=== PATIENT | female | born 1945 | race Caucasian/White ===

== ENCOUNTER 2020-04-18 10:08 | Outpatient (CLI) | payer MEDICARE, SELFPAY ==
[2020-04-21 07:42] LABS: Patient Race White; SARS-CoV-2 RNA Undetected (Undetected); SARS-CoV-2 Specimen Source Nasopharynx
== END 2020-04-18 10:28 ==
PROVIDERS: Visit Provider Internal Medicine
DX: Z11.59 Encounter for screening for other viral diseases (principal)
CPT/HCPCS: U0003

== ENCOUNTER 2020-12-08 04:43 | Outpatient (CLI) | payer MEDICARE, SELFPAY ==
[2020-12-08 09:53] LABS: Vitamin D 25 Total 98.9 ng/mL (30-100)
[2020-12-08 09:54] LABS: COMMENT (LAB VIEW ONLY) 172.74 mg/dL; Microalb ug/mg Crea 4.9 ug/mg Cr
[2020-12-08 09:58] LABS: Anion Gap 10.5 mmol/L (3-11); BUN 23 mg/dL (7-18); CO2 24.5 mmol/L (21.0-32.0); CREATININE 1.2 mg/dL (0.55-1.02); Calcium 9.6 mg/dL (8.5-10.1); Calculated LDL 89 mg/dL (<100); Chloride 109 mmol/L (98-107); Cholesterol 157 mg/dL (<200); Estimated GFR 43.68 (mL/min/1.73m2); Glucose 133 mg/dL (74-106); HDL Cholesterol 37 mg/dL (40-60); Potassium 4.3 mmol/L (3.5-5.1); Sodium 144 mmol/L (136-145); TSH 1.47 uIU/mL (0.36-3.74); Triglyceride 156 mg/dL (<150); Vitamin B12 455 pg/mL (193-986)
== END 2020-12-08 04:44 | disposition home or self-care (01) ==
LOC: LBO 04:43
PROVIDERS: PCP Internal Medicine; Visit Provider Internal Medicine
DX: I10 Essential (primary) hypertension (principal); E78.00 Pure hypercholesterolemia, unspecified; E55.9 Vitamin D deficiency, unspecified; D51.9 Vitamin B12 deficiency anemia, unspecified; E11.9 Type 2 diabetes mellitus without complications; F41.9 Anxiety disorder, unspecified; F32.9 Major depressive disorder, single episode, unspecified
CPT/HCPCS: 36415; 80048; 80061; 82306; 82043; 82570; 82607; 84443

== ENCOUNTER 2021-05-25 11:30 | Outpatient (CLI) | payer MEDICARE, SELFPAY ==
--- NOTE | 2021-05-25 10:45 | DI.RAD_ITS ---
Exam(s) XR KNEE RT 3V AP,LAT,GINA EXAM: XR KNEE RT 3V AP,LAT,GINA CLINICAL HISTORY: right knee pain. TECHNIQUE: 2D digital imaging was performed. COMPARISON: No exams were available for comparison FINDINGS: BONES: No acute fracture is present. No bony destructive lesion is seen. Sclerotic lesion distal femo ral metaphysis, likely enchondroma. Enthesophyte tibial tubercle. JOINTS: Moderate narrowing medial femoral tibial joint space. Mild periarticular spurring medial fem oral tibial joint and patellofemoral joint.. No joint effusion is seen. SOFT TISSUE: Arterial calcifications. IMPRESSION: Moderate degenerative changes of the medial femoral tibial joint. DATA REPOSITORY: RADIATION DOSE DELIVERED:
== END 2021-05-25 11:31 | disposition home or self-care (01) ==
LOC: DIORS 11:30
PROVIDERS: PCP Internal Medicine; Referring Provider Internal Medicine; Visit Provider Student in an Organized Health Care Education/Training Program
DX: M17.11 Unilateral primary osteoarthritis, right knee; D16.21 Benign neoplasm of long bones of right lower limb; E11.22 Type 2 diabetes mellitus with diabetic chronic kidney disease; N18.9 Chronic kidney disease, unspecified; M25.561 Pain in right knee
CPT/HCPCS: 73562; 99203

== ENCOUNTER 2021-11-23 03:59 | Outpatient (CLI) | payer MEDICARE, SELFPAY ==
[2021-11-23 10:07] LABS: Anion Gap 10.4 mmol/L (3-11); BUN 30 mg/dL (7-18); CO2 24.6 mmol/L (21.0-32.0); CREATININE 1.2 mg/dL (0.55-1.02); Calcium 9.7 mg/dL (8.5-10.1); Chloride 106 mmol/L (98-107); Estimated GFR 43.56 (mL/min/1.73m2); Glucose 139 mg/dL (74-106); Potassium 4.3 mmol/L (3.5-5.1); Sodium 141 mmol/L (136-145)
[2021-11-23 17:00] LABS: COMMENT (LAB VIEW ONLY) 136.93 mg/dL; Microalb ug/mg Crea 7.6 ug/mg Cr
[2021-11-23 17:25] LABS: Calculated LDL 90 mg/dL (<100); Cholesterol 154 mg/dL (<200); HDL Cholesterol 41 mg/dL (40-60); Triglyceride 116 mg/dL (<150)
== END 2021-11-23 04:00 | disposition home or self-care (01) ==
LOC: LBO 03:59
PROVIDERS: Absent Provider Internal Medicine; PCP Internal Medicine; Referring Provider Internal Medicine; Visit Provider Internal Medicine
DX: I10 Essential (primary) hypertension (principal); E11.9 Type 2 diabetes mellitus without complications; E78.00 Pure hypercholesterolemia, unspecified
CPT/HCPCS: 36415; 80048; 80061; 82043; 82570

== ENCOUNTER 2021-12-21 08:14 | Emergency (ER) | payer MEDICARE, SELFPAY ==
[2021-12-21 08:20] VITALS: BP 152/58; PULSE 71; RESP 14; TEMP 36.6; O2SAT 100
[2021-12-21] MEDS: Lidocaine/Prilocaine Cream 5 GM TUBE (09:02)
--- NOTE | 2021-12-21 09:57 | ED.GENADUL_ITS ---
Discharge Plan Disposition Patient Disposition: HOME Condition: Stable Discharge Details Clinical Impression: Scalp mass Primary Care Provider: Cristy Morales ED Provider: Tutu Franco Home Meds and New Rx's Prescriptions: No Action hydrochlorothiazide 12.5 mg tablet 12.5 mg PO QAM PRN (Reason: LE edema) Qty: 30 0RF Rx Instructions: take as needed for swelling in legs zeaxanthin and Lutien PO DAILY diclofenac sodium [Voltaren Arthritis Pain] 1 % gel 2 g topical QID PRN Rx Instructions: apply to single elbow, wrist or hand; for hand includes palm/fingers/back of hand ascorbate calcium (vitamin C) 500 mg tablet 500 mg PO DAILY aspirin [Enteric Coated Aspirin] 81 mg tablet,delayed release (DR/EC) 81 mg PO DAILY cholecalciferol (vitamin D3) [Vitamin D3] 25 mcg (1,000 unit) capsule 25 mcg PO DAILY biotin 5,000 mcg tablet, sublingual 5,000 mcg sublingual DAILY calcium carbonate-vitamin D3 [Caltrate with Vitamin D3] 600 mg(1,500mg) -800 unit tablet 1 tab PO DAILY amlodipine 10 mg tablet 10 mg PO DAILY Qty: 90 3RF benazepril 10 mg tablet 10 mg PO DAILY Qty: 90 3RF duloxetine 60 mg capsule,delayed release(DR/EC) 60 mg PO DAILY Qty: 90 3RF fenofibrate 160 mg tablet 160 mg PO DAILY Qty: 90 3RF rosuvastatin 5 mg tablet 5 mg PO DAILY Qty: 90 3RF metformin 500 mg tablet 500 mg PO BID Qty: 180 0RF Discharge Instructions Additional Instructions: Please continue to keep the area clean and dry. Return to the emergency department for any new or significant worsening of symptoms. At this time we have placed a referral in for you to see general surgery for further evaluation of the hematoma or mass that you have on your scalp. Referrals: [facility] [Provider Group] - 1 week Medical Decision Making Patient presenting to the emergency department for evaluation of hematoma or mass on her scalp. She states that this is been going on for greater than 5 weeks and occurred after she had a minor head injury where she hit her head on her sink. Patient denies any neurological symptoms, loss of consciousness, neck pain, headaches or other symptoms. Physical exam shows a 1.8 cm circular mass that is soft with slight fluctuant nature. No surrounding signs of cellulitis or infection noted remainder of exam is unremarkable. Discussed with patient risk versus benefit of needle drainage which she was agreeable to. Emla cream was placed over the area and allowed to set for greater than 20 minutes and 18- gauge needle was inserted into most soft/fluctuant area. Was unable to drain any fluid but bleeding was noted postprocedure. Bacitracin was placed on the area after attempt at needle drainage. Given that this is been going on and not improving with inability to drain suspected hematoma I do feel that patient would benefit from a surgical consult for at minimum removal of the mass but also consideration of additional pathology given its atypical presentation for a hematoma. Patient encouraged to keep the area clean and dry pending follow-up. After discussion of diagnosis and plan of care patient has no further needs, questions, or concerns and states clear understanding to return to the emergency department for any worsening symptoms. This documentation was generated using [employer] dictation system, please disregard any oddities of phrase or misspellings. HPI General Mode of arrival: ambulatory . Date/Time Provider Initiated Documentation: 12/21/21 08:50 . Limitations to Documentation: no limitations . Information obtained by: patient, RN notes reviewed and old records reviewed . History of Present Illness 76 year old F presents to the emergency department with the chief complaint of scalp lump, Quality is described as other (denies pain), Patient started experiencing this week(s) (5+) and it has been constant. No relieving factors improve symptom(s), No exacerbating factors reported . Patient notes no other symptoms.. Patient did receive the following treatments prior to arrival, other (Neosporin, Vaseline, and which spencer) Related Data Home Medications Medication Instructions Recorded Confirmed ascorbate calcium (vitamin C) 500 500 mg PO DAILY 08/12/20 11/17/21 mg tablet aspirin 81 mg tablet,delayed 81 mg PO DAILY 08/12/20 11/17/21 release (Enteric Coated Aspirin) biotin 5,000 mcg sublingual tablet 5,000 mcg sublingual DAILY 08/12/20 11/17/21 calcium carbonate 600 mg-vitamin 1 tab PO DAILY 08/12/20 11/17/21 D3 20 mcg (800 unit) tablet (Caltrate with Vitamin D3) cholecalciferol (vitamin D3) 25 25 mcg PO DAILY 08/12/20 11/17/21 mcg (1,000 unit) capsule (Vitamin D3) amlodipine 10 mg tablet 10 mg PO DAILY #90 tabs 02/12/21 11/17/21 benazepril 10 mg tablet 10 mg PO DAILY #90 tabs 02/12/21 11/17/21 duloxetine 60 mg capsule,delayed 60 mg PO DAILY #90 caps 02/12/21 11/17/21 release fenofibrate 160 mg tablet 160 mg PO DAILY #90 tabs 02/12/21 11/17/21 rosuvastatin 5 mg tablet 5 mg PO DAILY #90 tabs 02/12/21 11/17/21 hydrochlorothiazide 12.5 mg tablet 12.5 mg PO QAM PRN LE edema #30 04/15/21 11/17/21 tabs metformin 500 mg tablet 500 mg PO BID #180 tabs 10/13/21 11/17/21 diclofenac sodium 1 % topical gel 2 g topical QID PRN 11/17/21 11/17/21 (Voltaren Arthritis Pain) zeaxanthin and Lutien PO DAILY 11/17/21 11/17/21 Previous Rx's Medication Instructions Recorded amlodipine 10 mg tablet 10 mg PO DAILY #90 tabs 02/12/21 benazepril 10 mg tablet 10 mg PO DAILY #90 tabs 02/12/21 duloxetine 60 mg capsule,delayed 60 mg PO DAILY #90 caps 02/12/21 release fenofibrate 160 mg tablet 160 mg PO DAILY #90 tabs 02/12/21 rosuvastatin 5 mg tablet 5 mg PO DAILY #90 tabs 02/12/21 hydrochlorothiazide 12.5 mg tablet 12.5 mg PO QAM PRN LE edema #30 04/15/21 tabs metformin 500 mg tablet 500 mg PO BID #180 tabs 10/13/21 Allergies Allergy/AdvReac Type Severity Reaction Status Date / Time No Known Allergies Allergy Verified 12/21/21 08:25 General Stated Complaint: HeadInjury CATRACHITO: 5 Review of Systems Narrative: 6 systems reviewed and unremarkable except what is marked below. 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) Actinic keratosis (Acute) Sensorineural hearing loss of both ears (Acute) 04/03/21 LRHENT note: abnormal auditory perception Depression (Chronic) Anxiety (Chronic) Type 2 diabetes mellitus without complications (Chronic) Hypertension (Chronic) Hypercholesterolemia (Chronic) Chronic kidney disease (CKD) stage G3a/A1, moderately decreased glomerular filtration rate (GFR) between 45-59 mL/min/1.73 square meter and albuminuria creatinine ratio less than 30 mg/g (Chronic) B12 deficiency anemia (Chronic) Vitamin D deficiency (Chronic) Mitral valve regurgitation (Chronic) Medical History Cataracts, bilateral (~2019) 2019 Social History Smoking/Tobacco Use Status: Former Tobacco Use tobacco type: cigarettes Quit Date: 07/04/99 Tobacco: How many years used: 26 Smoking risk assessment performed?: Yes Alcohol Intake: current Alcohol Intake frequency: holidays/special occasions only Drug use: Never Substance use type: does not use Details: no IV drug use Adopted: No Caregiver/Support person: No Foster care: No Household members: none Housing: apartment Number of Children: 1 Communication Needs: Hard of Hearing Do you need help understanding health information?: Rarely current occupation: Retired Sexually active: No Do you think of yourself as: straight/heterosexual Current gender identity: female What is your relationship status?: Panel score (0-1 are the most socially isolated patients): 0 What type of physical activity do you participate in: none Seatbelt use: always Drive intox or ride w/intox armored car guard and driver: No Water heater temp set <120 deg: Yes Working smoke detector in home: Yes Fire extinguisher in home: Yes Carbon monox detector in home: Yes Do you feel safe at home: Yes Do you feel safe in your relationship?: Yes Victim of physical abuse: No Victim of emotional abuse: No Exam Const General: cooperative, no acute distress and not ill appearing Orientation: alert, awake and oriented x3 [facility] Head: no Baxter's sign, no contusions, no lacerations, no palpable skull fracture, scalp lesion left parietal other 1.8 in, no scalp tenderness, no temporal artery tenderness and No periorbital ecchymosis Ears: hearing grossly normal bilaterally and external ears normal General nose exam: external nose normal Face and sinus: normal facial exam Neck Neck: normal visual inspection, full ROM and no lymphadenopathy Resp Effort & Inspection: normal respiratory effort, able to speak in complete sentences and no respiratory distress Auscultation: clear to auscultation bilaterally Cardio Rate: regular rate Rhythm: regular rhythm Heart Sounds: S1 normal and S2 normal Neuro General: patient alert, patient awake, patient oriented x3, moves all extremities and no focal motor deficits Sensory Exam: no sensory deficits noted Course Vital Signs Vital signs: Vital Signs Temperature 36.6 C 12/21/21 08:20 Pulse 71 12/21/21 08:20 Respiratory Rate 14 12/21/21 08:20 Blood Pressure 152/58 H 12/21/21 08:20 Pulse Oximetry 100 12/21/21 08:20 Temperature 36.6 C 12/21/21 08:20 Temperature Source Tympanic 12/21/21 08:20 Pulse 71 12/21/21 08:20 Respiratory Rate 14 12/21/21 08:20 Respiratory Effort Non-Labored 12/21/21 08:30 Respiratory Depth Normal 12/21/21 08:30 Respiratory Pattern Normal 12/21/21 08:30 Blood Pressure 152/58 H 12/21/21 08:20 Blood Pressure Position Sitting 12/21/21 08:20 Pulse Oximetry 100 12/21/21 08:20 Oxygen Delivery Method Room Air 12/21/21 08:20 Oxygen Flow Rate 0 12/21/21 08:20 Pain Level 0 12/21/21 08:20
--- NOTE | 2021-12-21 10:29 | NUR.NOTE ---
Nursing Note: Referral faxed to [facility] Surgery for scalp mass in 1 week.
--- NOTE | 2021-12-23 14:15 | NUR.NOTE ---
Nursing Note: Patient called asking for Destiny. There is not Destiny in the ED, but she did state that she has been in contact with [facility] Surgery, they still have to review her records and then will call her back.
== END 2021-12-21 10:10 | disposition home or self-care (01) ==
PROVIDERS: Emergency Provider Nurse Practitioner Family; PCP Internal Medicine
DX: R22.0 Localized swelling, mass and lump, head (principal)
CPT/HCPCS: 99283

== ENCOUNTER → 2021-12-31 09:21 | Outpatient (BNVA) | payer MEDICARE, SELFPAY | PROVIDERS: PCP Internal Medicine; Referring Provider Internal Medicine; Visit Provider Surgery | DX: C49.0 Malignant neoplasm of connective and soft tissue of head, face and neck | CPT/HCPCS: 11104; 99203; 99214 ==

== ENCOUNTER 2021-12-31 10:09 | Outpatient (REF) | payer MEDICARE, SELFPAY ==
--- NOTE | 2021-12-31 10:24 | SKI_PTH ---
PATIENT: Nel Obrien I LOC: [facility] U#:[id number] AGE/SX: 76/F ROOM: RE12/31/[address]: Jaclyn Brown MD : [id number] BED: DIS: 12/31/2021 SPEC #: [id number] RECD: 12/31/21 12:46 STATUS: NOLAN REQ #: [id number] CRISTIN: 12/31/21 10:[address]: Jaclyn Brown DEPT: Surgical Specimen RECD BY: Estefania Woodson ENTERED: 12/31/21 12:46 SP TYPE: JOEY ASENCIOHR DR: Cristy Morales MD Tissues: 1 - SKIN BIOPSY(SHAVE/PUNCH) Procedures: IMMUNOPEROXIDASE STAIN SKIN LEVEL 4 Comments: [id number]
== END 2021-12-31 10:10 | disposition home or self-care (01) ==
LOC: LBN 10:09
PROVIDERS: PCP Internal Medicine; Visit Provider Surgery
DX: L57.0 Actinic keratosis (principal); L98.9 Disorder of the skin and subcutaneous tissue, unspecified
CPT/HCPCS: 88305; 88361

== ENCOUNTER → 2022-04-05 02:45 | Outpatient (CLI) | payer MEDICARE, SELFPAY ==
--- NOTE | 2022-04-05 | DI.CT_ITS ---
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 TECHNIQUE: Imaging Protocol: Axial computed tomography images with coronal and sagittal reformatted images were created and reviewed CONTRAST MATERIAL: Intravenous: Omnipaque 350 Contrast volume:100 ml contrast COMPARISON: No exams were available for comparison FINDINGS: Exam is somewhat limited by dental work which creates scattering artifact.. Parotids/submandibular/thyroid gland: Normal. Lymphadenopathy: No enlarged nodes.. Carotids/Jugular: Calcification at the common carotid bulbs. No significant stenosis. Soft tissues: The floor the mouth is unremarkable. The epiglottis and vocal cords are within normal limits. Lungs: Images through both lung apices are difficult to evaluate due to motion. Bones: Scoliosis. Degenerative changes of the cervical spine. Visualized portions of the brain and orbits: Unremarkable. Sinuses and mastoids: Clear. IMPRESSION: No evidence of mass or adenopathy. RADIATION DOSE DELIVERED: 388.21mGy.cm Total DLP DATA REPOSITORY: All CT scans at this facility are submitted to the National Radiology Data Registry (NRDR) Dose Index Registry (DIR) with the [employer] (ACR). RADIATION OPTIMIZATION: All CT scans at this facility use at least one of these dose optimization te chniques: automated exposure control; mA and/or kV adjustment per patient size (includes targeted exa ms where dose is matched to clinical indication); or iterative reconstruction.
[2022-04-05 07:51] LABS: CREATININE 1.1 mg/dL (0.55-1.02); Estimated GFR 51.43 (mL/min/1.73m2)
[2022-04-05] MEDS: Normal Saline Flush 10 ML SYR IVP (08:39)
[2022-04-05] MEDS: Omnipaque 350 MG/ML 500 ML BTL-Imaging package IJ (08:39)
== END ==
PROVIDERS: PCP Nurse Practitioner Adult Health; Visit Provider Preventive Medicine Undersea and Hyperbaric Medicine
DX: Z01.812 Encounter for preprocedural laboratory examination (principal); C44.42 Squamous cell carcinoma of skin of scalp and neck; Z12.89 Encounter for screening for malignant neoplasm of other sites
CPT/HCPCS: 70491; 82565

== ENCOUNTER 2022-05-17 10:18 | Outpatient (CLI) | payer MEDICARE, SELFPAY ==
--- NOTE | 2022-05-17 10:00 | DI.RAD_ITS ---
Exam(s) XR KNEE RT 3V AP,LAT,GINA EXAM: XR KNEE RT 3V AP,LAT,GINA CLINICAL HISTORY: DJD R KNEE. TECHNIQUE: 2D digital imaging was performed. Three views. COMPARISON: CR XR KNEE RT 3V AP,LAT,GINA from 05/25/2021 FINDINGS: BONES: No acute fracture is present. No bony destructive lesion is seen. Stable small sclerotic lesio n distal femoral metaphysis consistent with an enchondroma. Enthesophyte is seen at the tibial tuber rylie. JOINTS: The knee is normally aligned. No joint effusion is seen. Joint spaces are maintained. Mild spurring at the medial femoral tibial joint. SOFT TISSUE: Vascular calcifications. IMPRESSION: Stable degenerative changes. DATA REPOSITORY: RADIATION DOSE DELIVERED:
== END 2022-05-17 10:19 | disposition home or self-care (01) ==
LOC: DIORS 10:18
PROVIDERS: PCP Nurse Practitioner Adult Health; Referring Provider Nurse Practitioner Adult Health; Visit Provider Student in an Organized Health Care Education/Training Program
DX: M17.11 Unilateral primary osteoarthritis, right knee (principal); E11.9 Type 2 diabetes mellitus without complications; N18.31 Chronic kidney disease, stage 3a; D16.21 Benign neoplasm of long bones of right lower limb
CPT/HCPCS: 73562; 99213

== ENCOUNTER 2022-11-01 04:48 | Outpatient (CLI) | payer MEDICARE, SELFPAY ==
[2022-11-01 09:37] LABS: Hemoglobin A1C 6.5 % (<5.7)
[2022-11-01 09:46] LABS: Anion Gap 7.8 mmol/L (3-11); BUN 22 mg/dL (7-18); CO2 26.2 mmol/L (21.0-32.0); CREATININE 1.2 mg/dL (0.55-1.02); Calcium 9.6 mg/dL (8.5-10.1); Calculated LDL 75 mg/dL (<100); Chloride 106 mmol/L (98-107); Cholesterol 143 mg/dL (<200); Estimated GFR 46.33 (mL/min/1.73m2); Glucose 152 mg/dL (74-106); HDL Cholesterol 42 mg/dL (40-60); Potassium 4.4 mmol/L (3.5-5.1); Sodium 140 mmol/L (136-145); Triglyceride 132 mg/dL (<150)
== END 2022-11-01 04:49 | disposition home or self-care (01) ==
PROVIDERS: PCP Nurse Practitioner Adult Health; Visit Provider Nurse Practitioner Adult Health
DX: E11.9 Type 2 diabetes mellitus without complications (principal); E78.00 Pure hypercholesterolemia, unspecified; I10 Essential (primary) hypertension
CPT/HCPCS: 36415; 80048; 80061; 83036

== ENCOUNTER 2022-12-01 02:37 | Outpatient (CLI) | payer MEDICARE, SELFPAY ==
--- NOTE | 2022-12-01 | DI.CT_ITS ---
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 TECHNIQUE: Imaging Protocol: Axial computed tomography images with coronal and sagittal reformatted images were created and reviewed. CONTRAST MATERIAL: Intravenous: Omnipaque 350 Contrast volume:120 ml, which includes contrast admini stered for the neck CT. COMPARISON: No exams were available for comparison FINDINGS: Ventricles and Extra axial spaces: Normal in size and morphology for the patient's age. Hemorrhage: None. Cerebral parenchyma: Atrophy. White matter changes consistent with chronic microvascular disease. Enhancement: No suspicious enhancement. Midline shift: None. Brainstem/Cerebellum: Normal. Calvarium: Normal. Visualized Paranasal sinuses/Mastoids: Clear. Soft tissues: No abnormality visible. IMPRESSION: No acute abnormality. RADIATION DOSE DELIVERED: 1,601.56mGy.cm Total DLP DATA REPOSITORY: All CT scans at this facility are submitted to the National Radiology Data Registry (NRDR) Dose Index Registry (DIR) with the [employer] (ACR). RADIATION OPTIMIZATION: All CT scans at this facility use at least one of these dose optimization te chniques: automated exposure control; mA and/or kV adjustment per patient size (includes targeted exa ms where dose is matched to clinical indication); or iterative reconstruction.
--- NOTE | 2022-12-01 | DI.CT_ITS ---
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 TECHNIQUE: Imaging Protocol: Axial computed tomography images with coronal and sagittal reformatted images were created and reviewed. CONTRAST MATERIAL: Intravenous: Omnipaque 350 Contrast volume: 125 ml contrast which includes contra st administered for head CT. COMPARISON: CT CT NECK W from 04/05/2022 FINDINGS: Orbits and orbital soft tissues: Within normal limits. Visualized paranasal sinuses: Within normal limits. Mastoid air cells: Within normal limits. Nasopharynx: Within normal limits. Oropharynx: Within normal limits. Hypopharynx: Within normal limits. Larynx: Within normal limits. Retropharyngeal space: Within normal limits. Parotids/submandibular: Within normal limits. Thyroid gland: Within normal limits. Lymphadenopathy: There is scattered lymph nodes seen all measuring less than 8 mm in short axis edilberto meter which are physiologic in nature. Trachea: Within normal limits. Lung apices: Within normal limits. Bones: Significant artifact from dental work. Periapical lucencies seen in mandibular molar teeth bi laterally.. Degenerative changes in the cervical spine. Carotids/Jugular: Calcification at the common carotid bulbs but no significant stenosis. Soft tissues: Within normal limits. IMPRESSION: No evidence mass or adenopathy. RADIATION DOSE DELIVERED: 530.42mGy.cm Total DLP 530.42mGy.cm Total DLP DATA REPOSITORY: All CT scans at this facility are submitted to the National Radiology Data Registry (NRDR) Dose Index Registry (DIR) with the [employer] (ACR). RADIATION OPTIMIZATION: All CT scans at this facility use at least one of these dose optimization te chniques: automated exposure control; mA and/or kV adjustment per patient size (includes targeted exa ms where dose is matched to clinical indication); or iterative reconstruction.
[2022-12-01] MEDS: Normal Saline Flush 10 ML SYR IJ (08:00)
[2022-12-01] MEDS: Normal Saline - Diluent 50 ML VIAL IJ (08:02)
[2022-12-01] MEDS: Omnipaque 350 MG/ML 500 ML BTL-Imaging package 120 ML IJ (08:03)
== END 2022-12-01 02:57 ==
LOC: DI 02:38
PROVIDERS: PCP Nurse Practitioner Adult Health; Visit Provider Preventive Medicine Undersea and Hyperbaric Medicine
DX: C44.42 Squamous cell carcinoma of skin of scalp and neck (principal)
CPT/HCPCS: 70491; 70470

== ENCOUNTER 2022-12-26 16:31 | Emergency (ER) | payer MEDICARE, SELFPAY ==
[2022-12-26 16:42] VITALS: BP 156/58; PULSE 72; RESP 20; TEMP 36.8; O2SAT 96
--- NOTE | 2022-12-26 16:45 | DI.RAD_ITS ---
Exam(s) XR TIB/FIB RT XR FOOT RT COMPLETE EXAM: XR TIB/FIB RT and XR foot RT complete CLINICAL HISTORY: Fall. TECHNIQUE: 2D digital imaging was performed of the right foot, tibia and fibula. Five images were ob tained. AP, oblique and lateral views were obtained. COMPARISON: There are no priors for comparison. FINDINGS: BONES: There is an acute nondisplaced fracture through the base of the 5th metatarsal. There is a li near density on the dorsum of the foot adjacent to the navicular bone. No bony destructive lesion is seen. Visualized portion of knee and ankle joints are unremarkable. There are mild degenerative wong ges in the foot. SOFT TISSUE: Atherosclerosis. IMPRESSION: 1. Acute nondisplaced fracture through the base of the 5th metatarsal. 2. Linear density on the dorsum of the foot adjacent to the navicular bone. This may represent a sma ll avulsed fracture. DATA REPOSITORY: RADIATION DOSE DELIVERED:
--- NOTE | 2022-12-26 17:00 | ED.GENADUL_ITS ---
Discharge Plan Disposition Patient Disposition: Home Condition: Stable Discharge Details Clinical Impression: Fracture of fifth metatarsal bone of right foot Primary Care Provider: Susan Dubon ED Provider: Kasey Ayala Home Meds and New Rx's Prescriptions: Continued diclofenac sodium [Voltaren Arthritis Pain] 1 % gel 2 g topical QID PRN Rx Instructions: apply to single elbow, wrist or hand; for hand includes palm/fingers/back of hand ascorbate calcium (vitamin C) 500 mg tablet 500 mg PO DAILY aspirin [Enteric Coated Aspirin] 81 mg tablet,delayed release (DR/EC) 81 mg PO DAILY cholecalciferol (vitamin D3) [Vitamin D3] 25 mcg (1,000 unit) capsule 25 mcg PO DAILY biotin 5,000 mcg tablet, sublingual 5,000 mcg sublingual DAILY calcium carbonate-vitamin D3 [Caltrate with Vitamin D3] 600 mg(1,500mg) -800 unit tablet 1 tab PO DAILY amlodipine 10 mg tablet 10 mg PO DAILY Qty: 90 3RF benazepril 10 mg tablet 10 mg PO DAILY Qty: 90 3RF fenofibrate 160 mg tablet 160 mg PO DAILY Qty: 90 3RF rosuvastatin 5 mg tablet 5 mg PO DAILY Qty: 90 3RF metformin 500 mg tablet 500 mg PO BID Qty: 180 3RF duloxetine 60 mg capsule,delayed release(DR/EC) 60 mg PO DAILY Qty: 90 3RF Discharge Instructions Instructions: Foot Fracture in Adults (ED) Additional Instructions: Mild walking boot as needed for comfort. Sitting or lying down rest ice elevate. Please take Tylenol with food every 4-6 hours as needed for pain and swelling. Follow-up with orthopedics in 1 to 2 weeks they will call you for an appointment or you may call them. Referrals: Zenon Khan MD [ [facility] STAFF PHYSICIAN] - 2 weeks Discharge Data Discharge Date/Time-TO BE ENTERED AT DEPARTURE: 12/26/22 18:02 Medical Decision Making 69-year-old female presents to the ER for complaint of left foot and obando pain after a mechanical fall prior to arrival. Patient was getting out of the car currently landing on her right side. She also has an abrasion noted to her right elbow. Full range of motion noted. She is having difficulty walking because of ecchymosis to the lateral aspect of the small skin. Multiple abrasions noted on that hand and forearm. Denies any neck pain back pain or loss consciousness. Does have a past medical history of mitral valve regurgitation type 2 diabetes, depression hypertension cholesterol,chronic kidney disease and anxiety. She did ice it prior to arrival. XR of foot and Tib Fib ordered X-ray results noted below. Patient placed in a walking boot and instructed on home care and follow-up. This text was generated using [employer] dictation system, please disregard any oddities of phrase or misspellings. Imaging Data Radiologic Study: Imaging: X-Ray Radiologist's impression: Imaging protocol: Radiologic exam of the right foot. Views: 3 or more views. Non-weightbearing AP, oblique and lateral images. COMPARISON: CR XR KNEE RT 3V AP,LAT,GINA 05/17/2022 10:21 AM FINDINGS: Bones/joints: Nondisplaced oblique fracture of the base of the fifth metatarsal. The remainder of the metatarsals and phalanges are within normal limits. Soft tissues: Mild lateral soft tissue swelling. IMPRESSION: Nondisplaced fracture fifth metatarsal base. Thank you for allowing us to participate in the care of your patient. Dictated and Authenticated by: Adam Fonseca MD HPI General Mode of arrival: wheelchair . Date/Time Provider Initiated Documentation: 12/26/22 16:32 . Limitations to Documentation: no limitations and physical limitation (Hard Of Hearing) . Information obtained by: patient, family, RN notes reviewed and old records reviewed . HPI Narrative: 69-year-old female presents to the ER for complaint of left foot and obando pain after a mechanical fall prior to arrival. Patient was getting out of the car currently landing on her right side. She also has an abrasion noted to her right elbow. Full range of motion noted. She is having difficulty walking because of ecchymosis to the lateral aspect of the small skin. Multiple abrasions noted on that hand and forearm. Denies any neck pain back pain or loss consciousness. Does have a past medical history of mitral valve regurgitation type 2 diabetes, depression hypertension cholesterol,chronic kidney disease and anxiety. She did ice it prior to arrival. Related Data Home Medications Medication Instructions Recorded Confirmed ascorbate calcium (vitamin C) 500 500 mg PO DAILY 08/12/20 11/08/22 mg tablet aspirin 81 mg tablet,delayed 81 mg PO DAILY 08/12/20 11/08/22 release (Enteric Coated Aspirin) biotin 5,000 mcg sublingual tablet 5,000 mcg sublingual DAILY 08/12/20 11/08/22 calcium carbonate 600 mg-vitamin 1 tab PO DAILY 08/12/20 11/08/22 D3 20 mcg (800 unit) tablet (Caltrate with Vitamin D3) cholecalciferol (vitamin D3) 25 25 mcg PO DAILY 08/12/20 11/08/22 mcg (1,000 unit) capsule (Vitamin D3) diclofenac sodium 1 % topical gel 2 g topical QID PRN 11/17/21 11/08/22 (Voltaren Arthritis Pain) amlodipine 10 mg tablet 10 mg PO DAILY #90 tabs 01/29/22 11/08/22 benazepril 10 mg tablet 10 mg PO DAILY #90 tabs 01/29/22 11/08/22 fenofibrate 160 mg tablet 160 mg PO DAILY #90 tabs 01/29/22 11/08/22 rosuvastatin 5 mg tablet 5 mg PO DAILY #90 tabs 01/29/22 11/08/22 metformin 500 mg tablet 500 mg PO BID #180 tabs 04/01/22 11/08/22 duloxetine 60 mg capsule,delayed 60 mg PO DAILY #90 caps 09/06/22 11/08/22 release Previous Rx's Medication Instructions Recorded amlodipine 10 mg tablet 10 mg PO DAILY #90 tabs 01/29/22 benazepril 10 mg tablet 10 mg PO DAILY #90 tabs 01/29/22 fenofibrate 160 mg tablet 160 mg PO DAILY #90 tabs 01/29/22 rosuvastatin 5 mg tablet 5 mg PO DAILY #90 tabs 01/29/22 metformin 500 mg tablet 500 mg PO BID #180 tabs 04/01/22 duloxetine 60 mg capsule,delayed 60 mg PO DAILY #90 caps 09/06/22 release Allergies Allergy/AdvReac Type Severity Reaction Status Date / Time No Known Allergies Allergy Verified 12/26/22 16:46 General Stated Complaint: Orthopedic CATRACHITO: 4 Review of Systems Musculoskeletal Musculoskeletal: Reports as per HPI and Reports abnormal gait Integumentary/Breasts Skin/Breast: Reports wounds Neurologic Neurologic: Reports abnormal gait PFSH All Active Problems (Updated 12/26/22 @ 17:55 by Kasey Ayala NP) Fracture of fifth metatarsal bone of right foot (Acute) Anxiety (Chronic) Chronic kidney disease (CKD) stage G3a/A1, moderately decreased glomerular filtration rate (GFR) between 45-59 mL/min/1.73 square meter and albuminuria creatinine ratio less than 30 mg/g (Chronic) Sensorineural hearing loss of both ears (Acute ~04/2021) 04/03/21 LRHENT note: abnormal auditory perception Hypercholesterolemia (Chronic) Hypertension (Chronic) Depression (Chronic) Squamous cell carcinoma of scalp (Chronic ~02/2022[place] [facility] [place] STSG [place]/23/22, radiation therapy Type 2 diabetes mellitus without complications (Chronic) Mitral valve regurgitation (Chronic) Medical History Actinic keratosis B12 deficiency anemia Cataracts, bilateral (~2018) 2019 Congenital genu valgum of both knees Degenerative joint disease of right knee Enchondroma of right femur Excessive cerumen in both ear canals H/O squamous cell carcinoma of skin (~02/2022) 02/23/22 excision of tumor vertex of scalp Nail dystrophy Risk for falls Scalp mass (~12/2021) 02/04/22 Dr Jensen (Atypical fibroxanthoma of scalp), malignant lesion, CT done and surgery scheduled. Vitamin D deficiency Surgical History History of skin graft (02/23/22) [facility]: STSG to scalp Social History Smoking/Tobacco Use Status: Former Tobacco Use tobacco type: cigarettes Quit Date: 07/04/99 Tobacco: How many years used: 26 Smoking risk assessment performed?: Yes Alcohol Intake: current Alcohol Intake frequency: holidays/special occasions only Drug use: Never Substance use type: does not use Details: no IV drug use Adopted: No Caregiver/Support person: No Foster care: No Household members: none Housing: apartment Number of Children: 1 Communication Needs: Hard of Hearing Do you need help understanding health information?: Rarely current occupation: Retired Sexually active: No Do you think of yourself as: straight/heterosexual Current gender identity: female What is your relationship status?: Panel score (0-1 are the most socially isolated patients): 0 What type of physical activity do you participate in: none Seatbelt use: always Drive intox or ride w/intox customer service driver: No Water heater temp set <120 deg: Yes Working smoke detector in home: Yes Fire extinguisher in home: Yes Carbon monox detector in home: Yes Do you feel safe at home: Yes Do you feel safe in your relationship?: Yes Victim of physical abuse: No Victim of emotional abuse: No Exam Extrem Shoulder/upper arm images: 1. Superficial abrasion, bleeding controlled Right lower extremity: lower leg Details: ecchymosis mid lower leg anterior Details: single and foot Details: ecchymosis dorsal lateral mid Details: single Upper/lower leg/hip images: 1. Hematoma Ankle/foot/toe images: 1. Contusion, ecchymosis Course Vital Signs Vital signs: Vital Signs Temperature 36.8 C 12/26/22 16:42 Pulse 72 12/26/22 16:42 Respiratory Rate 20 12/26/22 16:42 Blood Pressure 156/58 H 12/26/22 16:42 Pulse Oximetry 96 12/26/22 16:42 Temperature 36.8 C 12/26/22 16:42 Temperature Source Oral 12/26/22 16:42 Pulse 72 12/26/22 16:42 Respiratory Rate 20 12/26/22 16:42 Respiratory Effort Normal 12/26/22 16:46 Blood Pressure 156/58 H 12/26/22 16:42 Blood Pressure Position Sitting 12/26/22 16:42 Pulse Oximetry 96 12/26/22 16:42 Oxygen Delivery Method Room Air 12/26/22 16:42 Oxygen Flow Rate 0 12/26/22 16:42 Pain Level 7 12/26/22 16:42
[2022-12-26] MEDS: Acetaminophen 325 MG TAB 650 MG PO (17:07)
--- NOTE | 2022-12-26 17:46 | DI.VRAD_ITS ---
PROCEDURE INFORMATION: Exam: XR Right Foot Exam date and time: 12/26/2022 5:23 PM Age: 77 years old Clinical indication: Other: Fal, R/O fracture TECHNIQUE: Imaging protocol: Radiologic exam of the right foot. Views: 3 or more views. Non-weightbearing AP, oblique and lateral images. COMPARISON: CR XR KNEE RT 3V AP,LAT,GINA 05/17/2022 10:21 AM FINDINGS: Bones/joints: Nondisplaced oblique fracture of the base of the fifth metatarsal. The remainder of the metatarsals and phalanges are within normal limits. Soft tissues: Mild lateral soft tissue swelling. IMPRESSION: Nondisplaced fracture fifth metatarsal base. Dictated and Authenticated by: Adam Fonseca MD. Ordering:STACY Parks MD
--- NOTE | 2022-12-26 17:47 | DI.VRAD_ITS ---
PROCEDURE INFORMATION: Exam: XR Right Tibia and Fibula Exam date and time: 12/26/2022 5:23 PM Age: 77 years old Clinical indication: Other: Fall R/O fracture TECHNIQUE: Imaging protocol: Radiologic exam of the right tibia and fibula. Views: 2 views. COMPARISON: CR XR KNEE RT 3V AP,LAT,GINA 05/17/2022 10:21 AM FINDINGS: Bones/joints: Normal. Soft tissues: Mild soft tissue edema. IMPRESSION: Nonspecific mild edema. Dictated and Authenticated by: Adam Fonseca MD. Ordering:STACY Parks MD
== END 2022-12-26 18:02 | disposition home or self-care (01) ==
PROVIDERS: Emergency Provider Registered Nurse Emergency; PCP Nurse Practitioner Adult Health
DX: S92.351A Displaced fracture of fifth metatarsal bone, right foot, initial encounter for closed fracture (principal); W19.XXXA Unspecified fall, initial encounter; E11.9 Type 2 diabetes mellitus without complications; I12.9 Hypertensive chronic kidney disease with stage 1 through stage 4 chronic kidney disease, or unspecified chronic kidney disease; N18.9 Chronic kidney disease, unspecified
CPT/HCPCS: 29515; 99284; 73590; 73630

== ENCOUNTER 2023-01-11 12:53 | Outpatient (CLI) | payer MEDICARE, SELFPAY ==
--- NOTE | 2023-01-11 12:30 | DI.RAD_ITS ---
Exam(s) XR FOOT RT COMPLETE EXAM: XR FOOT RT COMPLETE CLINICAL HISTORY: F/U FRACTURE. TECHNIQUE: 2D digital imaging was performed. COMPARISON: CR,XR XR FOOT RT COMPLETE from 12/26/2022 FINDINGS: Again noted is a transverse fracture of the base of the 5th metatarsal. Fracture line has slightly w idened when compared to prior study. No additional fractures evident. No radiopaque foreign body. No osseous lesions IMPRESSION: Slight further widening of the fracture line at the base of the 5th metatarsal. DATA REPOSITORY: RADIATION DOSE DELIVERED:
== END 2023-01-11 12:54 | disposition home or self-care (01) ==
LOC: DIORS 12:54
PROVIDERS: PCP Nurse Practitioner Adult Health; Referring Provider Nurse Practitioner Adult Health; Visit Provider Physician Assistant
DX: S92.351A Displaced fracture of fifth metatarsal bone, right foot, initial encounter for closed fracture (principal); W19.XXXA Unspecified fall, initial encounter
CPT/HCPCS: 99213; 73630

== ENCOUNTER 2023-01-25 15:27 | Outpatient (CLI) | payer MEDICARE, SELFPAY ==
--- NOTE | 2023-01-25 15:15 | DI.RAD_ITS ---
Exam(s) XR FOOT RT COMPLETE EXAM: XR FOOT RT COMPLETE CLINICAL HISTORY: METATARSAL FX F/U. TECHNIQUE: 2D digital imaging was performed. COMPARISON: CR XR FOOT RT COMPLETE from 01/11/2023 FINDINGS: 3 views Transverse fracture at the base of the 5th metatarsal again noted. Appearance is stable when compare d to 01/11/2023. No further widening. Minimal healing. No other fractures identified. There is no diastasis of the Lisfranc joint. IMPRESSION: Stable appearance of the 5th metatarsal fracture site. DATA REPOSITORY: RADIATION DOSE DELIVERED:
== END 2023-01-25 15:28 | disposition home or self-care (01) ==
LOC: DIORS 15:28
PROVIDERS: PCP Nurse Practitioner Adult Health; Referring Provider Nurse Practitioner Adult Health; Visit Provider Student in an Organized Health Care Education/Training Program
DX: S92.351D Displaced fracture of fifth metatarsal bone, right foot, subsequent encounter for fracture with routine healing (principal); W19.XXXD Unspecified fall, subsequent encounter
CPT/HCPCS: 99213; 73630

== ENCOUNTER → 2023-03-01 08:39 | Outpatient (BNVA) | payer MEDICARE, SELFPAY | PROVIDERS: PCP Nurse Practitioner Adult Health; Referring Provider Podiatrist; Visit Provider Physical Therapy Assistant | DX: I73.9 Peripheral vascular disease, unspecified (principal) | CPT/HCPCS: 93922 ==

== ENCOUNTER 2023-04-11 10:11 | Outpatient (CLI) | payer MEDICARE, SELFPAY ==
--- NOTE | 2023-04-11 08:11 | DI.RAD_ITS ---
Exam(s) XR FOOT RT COMPLETE EXAM: XR FOOT RT COMPLETE CLINICAL HISTORY: f/u R FOOT FX. TECHNIQUE: 2D digital imaging was performed. Three views. COMPARISON: CR XR FOOT RT COMPLETE from 01/25/2023 FINDINGS: There has been no change in the alignment of the fracture at the base of the 5th metatarsal. Some in creased healing is noted when compared the previous exam. Osteopenia, heel spurs and vascular calcif ications again noted. No new abnormalities. DATA REPOSITORY: RADIATION DOSE DELIVERED:
== END 2023-04-11 10:12 | disposition home or self-care (01) ==
LOC: DIORS 10:11
PROVIDERS: PCP Nurse Practitioner Adult Health; Referring Provider Nurse Practitioner Adult Health; Visit Provider Student in an Organized Health Care Education/Training Program
DX: M19.071 Primary osteoarthritis, right ankle and foot; S92.351D Displaced fracture of fifth metatarsal bone, right foot, subsequent encounter for fracture with routine healing; X58.XXXD Exposure to other specified factors, subsequent encounter
CPT/HCPCS: 99213; 73630

== ENCOUNTER → 2023-05-11 09:25 | Outpatient (BNVA) | payer MEDICARE, SELFPAY | PROVIDERS: PCP Nurse Practitioner Adult Health; Referring Provider Nurse Practitioner Adult Health; Visit Provider Podiatrist | DX: E11.42 Type 2 diabetes mellitus with diabetic polyneuropathy (principal); I73.9 Peripheral vascular disease, unspecified; L60.3 Nail dystrophy | CPT/HCPCS: 11719 ==

== ENCOUNTER → 2023-10-12 08:40 | Outpatient (BNVA) | payer MEDICARE, SELFPAY | PROVIDERS: PCP Nurse Practitioner Adult Health; Referring Provider Nurse Practitioner Adult Health; Visit Provider Podiatrist | DX: E11.42 Type 2 diabetes mellitus with diabetic polyneuropathy (principal); I73.9 Peripheral vascular disease, unspecified; R25.2 Cramp and spasm; M19.071 Primary osteoarthritis, right ankle and foot; M19.072 Primary osteoarthritis, left ankle and foot; N18.31 Chronic kidney disease, stage 3a | CPT/HCPCS: 11719; 11721 ==

== ENCOUNTER 2023-11-07 05:19 | Outpatient (CLI) | payer MEDICARE, SELFPAY ==
[2023-11-07 09:25] LABS: Hemoglobin A1C 6.6 % (<5.7)
[2023-11-07 09:31] LABS: COMMENT (LAB VIEW ONLY) 87.77 mg/dL; Microalb ug/mg Crea 20.8 ug/mg Cr
[2023-11-07 09:40] LABS: Anion Gap 10.4 mmol/L (3-11); BUN 19 mg/dL (7-18); CO2 26.6 mmol/L (21.0-32.0); Calcium 9.5 mg/dL (8.5-10.1); Calculated LDL 79 mg/dL (<100); Chloride 107 mmol/L (98-107); Cholesterol 149 mg/dL (<200); Estimated GFR 57.31 (mL/min/1.73m2); Glucose 145 mg/dL (74-106); HDL Cholesterol 44 mg/dL (40-60); Sodium 144 mmol/L (136-145); Triglyceride 133 mg/dL (<150)
== END 2023-11-07 05:20 | disposition home or self-care (01) ==
LOC: LBO 05:19
PROVIDERS: PCP Nurse Practitioner Adult Health; Referring Provider Nurse Practitioner Adult Health; Visit Provider Nurse Practitioner Adult Health
DX: I10 Essential (primary) hypertension (principal); N18.31 Chronic kidney disease, stage 3a; H90.5 Unspecified sensorineural hearing loss; F32.9 Major depressive disorder, single episode, unspecified; E78.00 Pure hypercholesterolemia, unspecified; Z85.828 Personal history of other malignant neoplasm of skin
CPT/HCPCS: 36415; 80048; 80061; 82043; 82570; 83036

== ENCOUNTER → 2024-02-08 08:42 | Outpatient (BNVA) | payer MEDICARE, SELFPAY | PROVIDERS: PCP Nurse Practitioner Adult Health; Referring Provider Nurse Practitioner Adult Health; Visit Provider Podiatrist | DX: E11.42 Type 2 diabetes mellitus with diabetic polyneuropathy (principal); I73.89 Other specified peripheral vascular diseases; R25.2 Cramp and spasm; L60.3 Nail dystrophy; N18.31 Chronic kidney disease, stage 3a | CPT/HCPCS: 11720 ==

== ENCOUNTER → 2024-06-06 08:30 | Outpatient (BNVA) | payer MEDICARE, SELFPAY | PROVIDERS: PCP Nurse Practitioner Adult Health; Referring Provider Nurse Practitioner Adult Health; Visit Provider Podiatrist | DX: E11.42 Type 2 diabetes mellitus with diabetic polyneuropathy (principal); I73.89 Other specified peripheral vascular diseases; R25.2 Cramp and spasm; N18.31 Chronic kidney disease, stage 3a; L60.3 Nail dystrophy; M25.571 Pain in right ankle and joints of right foot; M25.572 Pain in left ankle and joints of left foot | CPT/HCPCS: 11719 ==

== ENCOUNTER → 2024-10-10 08:26 | Outpatient (BNVA) | payer MEDICARE, SELFPAY | PROVIDERS: PCP Nurse Practitioner Adult Health; Referring Provider Nurse Practitioner Adult Health; Visit Provider Podiatrist | DX: L60.3 Nail dystrophy (principal); M25.571 Pain in right ankle and joints of right foot; M25.572 Pain in left ankle and joints of left foot; I73.89 Other specified peripheral vascular diseases; R25.2 Cramp and spasm; N18.31 Chronic kidney disease, stage 3a; E11.42 Type 2 diabetes mellitus with diabetic polyneuropathy; R09.89 Other specified symptoms and signs involving the circulatory and respiratory systems; L65.9 Nonscarring hair loss, unspecified; R23.8 Other skin changes; L60.2 Onychogryphosis | CPT/HCPCS: 11719 ==

== ENCOUNTER 2024-11-12 04:24 | Outpatient (CLI) | payer MEDICARE, SELFPAY ==
[2024-11-12 08:52] LABS: Anion Gap 7.5 mmol/L (3-11); BUN 26 mg/dL (7-18); CO2 26.5 mmol/L (21.0-32.0); CREATININE 1.1 mg/dL (0.55-1.02); Calcium 10.4 mg/dL (8.5-10.1); Chloride 107 mmol/L (98-107); Glucose 149 mg/dL (74-106); Potassium 3.7 mmol/L (3.5-5.1); Sodium 141 mmol/L (136-145)
[2024-11-12 08:58] LABS: Hemoglobin A1C 5.9 % (<5.7)
[2024-11-13 18:54] LABS: Calculated LDL 72 mg/dL (<100); Cholesterol 138 mg/dL (<200); HDL Cholesterol 43 mg/dL (>or=50); Triglyceride 118 mg/dL (<150)
== END 2024-11-12 04:25 | disposition home or self-care (01) ==
LOC: LBO 04:25
PROVIDERS: PCP Nurse Practitioner Adult Health; Referring Provider Nurse Practitioner Adult Health; Visit Provider Nurse Practitioner Adult Health
DX: I10 Essential (primary) hypertension (principal); E11.42 Type 2 diabetes mellitus with diabetic polyneuropathy; E78.00 Pure hypercholesterolemia, unspecified
CPT/HCPCS: 36415; 80048; 80061; 83036

== ENCOUNTER → 2024-12-17 08:27 | Outpatient (BNVA) | payer MEDICARE, SELFPAY | PROVIDERS: PCP Nurse Practitioner Adult Health; Referring Provider Nurse Practitioner Adult Health; Visit Provider Podiatrist | DX: L60.3 Nail dystrophy (principal); E11.42 Type 2 diabetes mellitus with diabetic polyneuropathy; I73.89 Other specified peripheral vascular diseases; R25.2 Cramp and spasm; N18.31 Chronic kidney disease, stage 3a; M25.571 Pain in right ankle and joints of right foot; M25.572 Pain in left ankle and joints of left foot; R09.89 Other specified symptoms and signs involving the circulatory and respiratory systems; L65.9 Nonscarring hair loss, unspecified; R20.8 Other disturbances of skin sensation; L60.8 Other nail disorders; L60.2 Onychogryphosis | CPT/HCPCS: 11719; 11720 ==

== ENCOUNTER 2024-12-24 02:59 | Outpatient (CLI) | payer MEDICARE, SELFPAY | END 2024-12-24 03:00 | disposition home or self-care (01) | LOC: LBO 02:59 | PROVIDERS: PCP Nurse Practitioner Adult Health; Referring Provider Nurse Practitioner Adult Health; Visit Provider Nurse Practitioner Adult Health | DX: E83.52 Hypercalcemia (principal) | CPT/HCPCS: 36415; 82310 ==

== ENCOUNTER → 2025-02-25 08:29 | Outpatient (BNVA) | payer MEDICARE, SELFPAY | PROVIDERS: PCP Nurse Practitioner Adult Health; Referring Provider Nurse Practitioner Adult Health; Visit Provider Podiatrist | DX: L60.3 Nail dystrophy (principal); E11.42 Type 2 diabetes mellitus with diabetic polyneuropathy; E11.22 Type 2 diabetes mellitus with diabetic chronic kidney disease; N18.31 Chronic kidney disease, stage 3a; R25.2 Cramp and spasm; I73.89 Other specified peripheral vascular diseases; R09.89 Other specified symptoms and signs involving the circulatory and respiratory systems; L65.9 Nonscarring hair loss, unspecified; L60.8 Other nail disorders; R23.4 Changes in skin texture; L60.2 Onychogryphosis | CPT/HCPCS: 11720; 11719 ==

== ENCOUNTER → 2025-04-30 08:27 | Outpatient (BNVA) | payer MEDICARE, SELFPAY | PROVIDERS: PCP Nurse Practitioner Adult Health; Referring Provider Nurse Practitioner Adult Health; Visit Provider Podiatrist | DX: L60.3 Nail dystrophy (principal); E11.22 Type 2 diabetes mellitus with diabetic chronic kidney disease; N18.31 Chronic kidney disease, stage 3a; E11.42 Type 2 diabetes mellitus with diabetic polyneuropathy; I73.89 Other specified peripheral vascular diseases; R25.2 Cramp and spasm; R09.89 Other specified symptoms and signs involving the circulatory and respiratory systems; L65.9 Nonscarring hair loss, unspecified; L60.8 Other nail disorders; L60.2 Onychogryphosis; L85.8 Other specified epidermal thickening | CPT/HCPCS: 11055; 11719; 11720 ==